=== PATIENT | female | born 1960 | race African-American/Black ===

== ENCOUNTER 2017-04-20 18:51 | Emergency (ER) | payer BC ==
[~2017-04-20] VITALS: Ht 170.2 cm; Wt 90.0 kg
[2017-04-20] MEDS ORDERED: ACETAMINOPHEN 325MG TABLET PO ONE (19:45)
[2017-04-20 20:00] VITALS: BP 116/75
== END 2017-04-20 20:24 | disposition left against medical advice (07) ==
LOC: ER 18:55
DX: R10.84 Generalized abdominal pain (principal); R11.2 Nausea with vomiting, unspecified; N18.6 End stage renal disease; Z99.2 Dependence on renal dialysis
CPT/HCPCS: 99283; Z7610